=== PATIENT | female | born 1995 | race Caucasian/White ===

== ENCOUNTER 2016-09-21 15:54 | Emergency (ER) | payer BC ==
[2016-09-21 16:27] VITALS: BP 124/68
--- NOTE | 2016-09-21 16:37 | UC ---
Complaint Female HPI - HPI Summary HPI Summary: 21 F presents with increase frequency, dysuria, and urgency for a couple days. She admits to suprapubic pressure. She admits to hematuria. she said she did vomit once but that was due to eating to much and to fast today. She denies any fever or flank pain. She denies any vaginal bleeding or discharge. PMH of sinus infections potentially being workup for wegeners syndrome - History Of Current Complaint Chief Complaint: UCGU Stated Complaint: POSS UTI Time Seen by Provider: 09/21/16 16:15 Hx Last Menstrual Period: Irregular BCP - Allergies/Home Medications Allergies/Adverse Reactions: Allergies Allergy/AdvReac Type Severity Reaction Status Date / Time Sulfamethoxazole Allergy Hives Verified 07/28/16 08:57 w/Trimethoprim [From Bactrim] PMH/Surg Hx/FS Hx/Imm Hx Endocrine History Of: Denies: Diabetes, Thyroid Disease Cardiovascular History Of: Reports: Cardiac Disorders - reports from eating disorder causing "low heart rate" Denies: Hypertension Respiratory History Of: Denies: COPD, Asthma GI/ History Of: Denies: Ulcer Psychological History Of: Reports: Anxiety - eating disorder - Surgical History Surgical History: Yes Surgery Procedure, Year, and Place: WISDOM TEETH - Family History Known Family History: Positive: Cardiac Disease - Social History Alcohol Use: Rare Substance Use Type: None Smoking Status (MU): Never Smoked Tobacco Have You Smoked in the Last Year: No - Immunization History Most Recent Influenza Vaccination: fall 2015 Hx Tetanus, Diphtheria Vaccination: Yes Vaccination Up to Date: Yes Review of Systems Constitutional: Negative Respiratory: Negative Cardiovascular: Negative Gastrointestinal: Abdominal Pain - suprapubic, Vomiting - once Genitourinary: Dysuria, Hematuria, Frequency, Urgency All Other Systems Reviewed And Are Negative: Yes Physical Exam Triage Information Reviewed: Yes Appearance: Well-Appearing Vital Signs: Initial Vital Signs Temp 98.1 F 09/21/16 16:21 Pulse 100 09/21/16 16:21 Resp 16 09/21/16 16:21 BP 124/68 09/21/16 16:21 Pulse Ox 98 09/21/16 16:21 Vital Signs Reviewed: Yes Eyes: Positive: Conjunctiva Clear ENT: Positive: Normal ENT inspection, Pharynx normal, TMs normal Respiratory: Positive: Lungs clear, Normal breath sounds Cardiovascular: Positive: RRR Abdomen Description: Positive: Nontender, Soft Bowel Sounds: Positive: Present Complaint Female Dx - Course Course Of Treatment: 21 F presents with symptoms of UTI. said vomited today due to overeating. abdomen nontender, temperature is normal so do not suspect pyelonephritis, no flank pain or CVA tenderness so do not suspect kindey stone, u/a pos for WBC will treat for UTI, advised for hematuria does not resolved to follow up with candy, patient agrees with plan - Differential Dx/Diagnosis Differential Diagnosis/HQI/PQRI: Ureteral Stone, Urinary Tract Infection, Other - pyelonephritis Provider Diagnoses: urinary tract infection Discharge - Discharge Plan Condition: Good Disposition: HOME Prescriptions: Nitrofurantoin Macrocrystals* [Macrodantin*] 100 mg PO BID #10 cap Phenazopyridine TAB* [Pyridium TAB*] 200 mg PO TID #12 tab Patient Education Materials: Phenazopyridine (By mouth), Urinary Tract Infection in Women (ED) Referrals: [facility] CANDY Calderon [Medical Doctor] - Additional Instructions: Take Macrobid twice a day for 5 days, Take pyidium two tablets three times a day for 2 days with food Follow up with Candy if blood continues in urine after 5 days Return to ED if develop fever, severe abdominal pain, or any new or worsening symptoms
== END 2016-09-21 16:56 | disposition home or self-care (01) ==
LOC: UCEAST 15:54
DX: N39.0 Urinary tract infection, site not specified (principal); Z88.1 Allergy status to other antibiotic agents
CPT/HCPCS: 81002; 81025; 87077; 87086; 87186; 99212; G0463